=== PATIENT | female | born 1990 ===

== ENCOUNTER 2018-05-15 23:08 | Inpatient (IN) | payer BC ==
[~2018-05-15] VITALS: Ht 160 cm; Wt 50.8 kg
--- NOTE | 2018-05-15 23:16 | NUR ---
Dr. Archuleta at bedside for MSE.
[2018-05-15] MEDS ORDERED: IV NORMAL SALINE 1000 ML BAG IV ONE (23:30)
[2018-05-15] MEDS ORDERED: HYDROMORPHONE 1 MG/1 ML DISP.SYRIN IV ONE (23:30)
[2018-05-15] MEDS ORDERED: METOCLOPRAMIDE HCL 10 MG/2 ML VIAL IV ONE (23:30)
[2018-05-15] MEDS ORDERED: diphenhydrAMINE 50 MG/1 ML VIAL IV ONE (23:30)
[2018-05-15] MEDS ORDERED: METOCLOPRAMIDE HCL 10 MG/2 ML VIAL ONE (23:31)
[2018-05-15] MEDS ORDERED: HYDROMORPHONE 1 MG/1 ML DISP.SYRIN ONE (23:31)
[2018-05-15] MEDS ORDERED: DICYCLOMINE HCL 10 MG/5 ML UDC LIQ PO ONE (23:45)
[2018-05-15] MEDS ORDERED: DICYCLOMINE HCL 10 MG/5 ML UDC LIQ ONE (23:49)
[2018-05-16] MEDS ORDERED: HYDROMORPHONE 1 MG/1 ML DISP.SYRIN ONE ×2 (00:06→01:20)
[2018-05-16] MEDS ORDERED: SWABABLE VALVE TRANSFER SET EA MC ONE (00:08)
[2018-05-16] MEDS ORDERED: NORMAL SALINE FLUSH 10 ML DISP.SYRIN ONE (00:08)
[2018-05-16] MEDS ORDERED: IV NORMAL SALINE 250 ML IV ONE (00:09)
[2018-05-16] MEDS ORDERED: IOHEXOL 300MG/ML 100 ML INFUS..BTL ONE (00:09)
[2018-05-16] MEDS ORDERED: HYDROMORPHONE 1 MG/1 ML DISP.SYRIN IV ONE ×2 (00:15→01:30)
[2018-05-16 00:17] LABS: ALANINE AMINOTRANSFERASE 22 U/L (14-59); ALKALINE PHOSPHATASE 62 U/L (50-136); ASPARTATE AMINOTRANSFERASE 13 U/L (15-37); BILIRUBIN,DIRECT 0.1 mg/dL (0.0-0.2); BILIRUBIN,TOTAL 0.6 mg/dL (0.2-1.0); CARBON DIOXIDE 23 mmol/L (21-32); CHLORIDE 103 mmol/L (98-107); CREATININE 0.9 mg/dL (0.6-1.3); GLUCOSE 113 mg/dL (74-106); LIPASE 136 U/L (73-393); POTASSIUM 3.2 mmol/L (3.5-5.1); TOTAL PROTEIN, SERUM 7.9 g/dL (6.4-8.2); UREA NITROGEN, BLOOD 10 mg/dL (7-18)
[2018-05-16 00:24] LABS: BASOPHILS % (AUTO) 0.3 % (0.0-2.0); EOSINOPHILS # (AUTO) 0.1 K/uL (0.0-0.7); EOSINOPHILS % (AUTO) 0.9 % (0.0-7.0); HEMATOCRIT 42.7 % (31.2-41.9); HEMOGLOBIN 14.6 g/dL (10.9-14.3); LYMPHOCYTES # (AUTO) 4.1 K/uL (20.0-40.0); LYMPHOCYTES % (AUTO) 41.7 % (20.5-51.5); MEAN CORPUSCULAR HEMOGLOBIN 31.4 uug (24.7-32.8); MEAN CORPUSCULAR HGB CONC 34 g/dL (32.3-35.6); MEAN CORPUSCULAR VOLUME 91.8 fL (75.5-95.3); MONOCYTES # (AUTO) 0.8 K/uL (2.0-10.0); MONOCYTES % (AUTO) 8.1 % (0.0-11.0); NEUTROPHILS # (AUTO) 4.8 K/uL (1.8-8.9); PLATELET COUNT (AUTO) 245 K/uL (179-408); RED BLOOD CELL COUNT(AUTO) 4.65 MIL/uL (3.63-4.92); WHITE BLOOD COUNT (AUTO) 9.8 K/uL (3.8-11.8)
--- NOTE | 2018-05-16 00:26 | NUR ---
Pt provided urine sample, sent to lab.
--- NOTE | 2018-05-16 00:30 | NUR ---
Pt states nausea is gone and pain is feeling much better.
--- NOTE | 2018-05-16 00:34 | NUR ---
Pt out of ER for CT.
--- NOTE | 2018-05-16 00:55 | NUR ---
Pt back to ER from CT.
[2018-05-16 01:00] LABS: *BILIRUBIN,URIN NEGATIVE (NEGATIVE); *BLOOD, URINE Trace-intact (NEGATIVE); *CLARITY,URINE CLEAR (CLEAR); *COLOR,URINE YELLOW (YELLOW); *KETONES,URINE TRACE (NEGATIVE); *PROTEIN,URINE NEGATIVE (NEGATIVE); *UROBILINOGEN,URINE 0.2 E.U./dl (NORMAL); LEUKOCYTE ESTERASE ,URINE TRACE (NEGATIVE); NITRITE, URINE NEGATIVE (NEGATIVE); UGLUCOSE NEGATIVE (NEGATIVE)
[2018-05-16 01:05] LABS: BACTERIA,URINE FEW /HPF (NONE SEEN); RBC,URINE 0-3 /HPF (0-3); SQUAMOUS EPITHELIAL CELL,UR FEW /HPF (NONE SEEN); WBC,URINE 0-3 /HPF (0-3)
[2018-05-16] MEDS ORDERED: IV D5W-0.45% NS +20 KCL 1,000 ML IV ONE ×2 (01:17→01:32)
--- NOTE | 2018-05-16 01:17 | NUR ---
Pt states pain and nausea is back. Pain about 4/10. MD notified.
[2018-05-16] MEDS ORDERED: ONDANSETRON 4 MG/2 ML VIAL ONE (01:20)
[2018-05-16] MEDS ORDERED: ONDANSETRON IV *ER 4 MG/2 ML VIAL IV ONE (01:30)
[2018-05-16] MEDS ORDERED: PIPERACILLIN SODIUM/TAZOBACTAM 3.375 G in IV DEXTROSE 5% 50 ML IV ONE (02:15)
[2018-05-16] MEDS ORDERED: PIPERACILLIN/TAZOBACTAM/D5W 50 ML IV ONE (02:15)
--- NOTE | 2018-05-16 02:26 | NUR ---
Dr. Archuleta on panel call with Dr. Thomas.
--- NOTE | 2018-05-16 02:31 | NUR ---
Report given to Alicia PULIDO Medsurg.
--- NOTE | 2018-05-16 02:45 | NUR ---
Pt received in Med Surg unit RM [id number] via gurney under the care of Dr. MANNY MD. Mother at bedside. Patient belongings list completed. Pt AxO x4. Pt complains of abdominal pain and nausea at this time. No emesis present. Pain management noted. Assisted pt to bathroom. Pertinent assessments and unit orientation done. IV on R AC 20g intact and patent. Contacted MD for admitting orders. Safety precautions and comfort measures implemented. Bed on low locked position, call light within reach. Will continue to monitor closely and carry out all orders.
[2018-05-16] MEDS ORDERED: ONDANSETRON 4 MG/2 ML VIAL IV PRN (03:30)
[2018-05-16] MEDS ORDERED: ZOLPIDEM 5 MG TABLET PO PRN (03:30)
[2018-05-16] MEDS ORDERED: MORPHINE SULFATE 4 MG/1 ML DISP.SYRIN IV PRN (03:30)
[2018-05-16] MEDS ORDERED: Z GUARD REMEDY PASTE 57 GM TUBE TOP PRN (03:30)
[2018-05-16] MEDS ORDERED: IV NS 1000 ML 1,000 ML IV PRN (03:30)
[2018-05-16] MEDS ORDERED: HYDROCODONE/APAP 5-325MG TABLET PO PRN (03:30)
[2018-05-16] MEDS ORDERED: MAGNESIUM HYDROXIDE 30 ML LIQUID UDC PO PRN (03:30)
[2018-05-16] MEDS ORDERED: PIPERACILLIN/TAZOBACTAM/D5W 3.375 G in PREMIXED 1 EACH IV SCH (06:00)
[2018-05-16 06:16] VITALS: BP 108/65
--- NOTE | 2018-05-16 06:30 | NUR ---
Pt had complaints of pain througout the night. Slept intermittently. Pain and antiemetic med given x1 with no effect. Pt emesis output 150, color brown, biluous with food particles. Contacted Dr. BRYANT at [phone] [id number] [phone]. Awaiting call back. Pt AxO x4. Pt IV intact with no s/s of redness or swelling. Pt maintained NPO during the night. Comfort measures maintained at all times. Will endorse plan of care with day shift nurse.
--- NOTE | 2018-05-16 06:49 | NUR ---
Dr Thomas paged at this time for additional meds for pt's nausea and pain through [facility]'s paging system; awaiting call back.
[2018-05-16] MEDS ORDERED: MORPHINE SULFATE 2 MG/1 ML DISP.SYRIN IV PRN (07:15)
[2018-05-16] MEDS: PIPERACILLIN/TAZOBACTAM/D5W 3.375 G in PREMIXED 1 EACH IV SCH ×3 (09:18→20:55)
--- NOTE | 2018-05-16 10:33 | NUR ---
PT SEEN BY DR CARRERO
[2018-05-16 11:17] VITALS: BP 87/47
[2018-05-16] MEDS ORDERED: METOCLOPRAMIDE HCL 10 MG/2 ML VIAL IV PRN (13:30)
[2018-05-16] MEDS: POTASSIUM CHLORIDE 20 MEQ in IV D5/ 0.9% NACL 1,000 ML IV PRN (14:08)
[2018-05-16 16:32] VITALS: BP 98/53
[2018-05-16] MEDS: ACETAMINOPHEN 325 MG TABLET PO PRN (18:17)
--- NOTE | 2018-05-16 19:41 | NUR ---
PATIENT IS AWAKE IN BED, AAOX4. DENIES PAIN OR ANY DISTRESS ON ASSESSMENT. SAFETY MEASURES IN PLACE, WILL CONTINUE TO MONITOR PATIENT
[2018-05-16] MEDS: PIPERACILLIN/TAZOBACTAM/D5W 50 ML IV SCH ×2 (20:21→20:55)
[2018-05-16 20:29] VITALS: BP 97/49
[2018-05-16 22:38] VITALS: BP 98/56
[2018-05-17] MEDS: PIPERACILLIN/TAZOBACTAM/D5W 50 ML IV SCH ×3 (02:04→13:28)
[2018-05-17 05:09] VITALS: BP 95/59
[2018-05-17 06:08] LABS: BASOPHILS % (AUTO) 0.3 % (0.0-2.0); EOSINOPHILS # (AUTO) 0.1 K/uL (0.0-0.7); EOSINOPHILS % (AUTO) 0.7 % (0.0-7.0); HEMATOCRIT 36.7 % (31.2-41.9); HEMOGLOBIN 12.8 g/dL (10.9-14.3); LYMPHOCYTES # (AUTO) 2.1 K/uL (20.0-40.0); LYMPHOCYTES % (AUTO) 22.5 % (20.5-51.5); MEAN CORPUSCULAR HEMOGLOBIN 32.3 uug (24.7-32.8); MEAN CORPUSCULAR HGB CONC 35 g/dL (32.3-35.6); MEAN CORPUSCULAR VOLUME 92.9 fL (75.5-95.3); MONOCYTES # (AUTO) 0.8 K/uL (2.0-10.0); MONOCYTES % (AUTO) 8.4 % (0.0-11.0); NEUTROPHILS # (AUTO) 6.4 K/uL (1.8-8.9); NEUTROPHILS % (AUTO) 68.1 % (38.5-71.5); PLATELET COUNT (AUTO) 174 K/uL (179-408); RED BLOOD CELL COUNT(AUTO) 3.95 MIL/uL (3.63-4.92); WHITE BLOOD COUNT (AUTO) 9.3 K/uL (3.8-11.8)
--- NOTE | 2018-05-17 06:11 | NUR ---
PATIENT SLEPT WELL ON THIS SHIFT, NO C/O PAIN OR ANY DISTRESS ON THIS SHIFT. V/S WITHIN PATIENT'S BASELINE, NO FEVER. NO SIGNIFICANT CHANGES IN STATUS
[2018-05-17 07:02] LABS: BILIRUBIN,TOTAL 1.5 mg/dL (0.2-1.0); CREATININE 0.8 mg/dL (0.6-1.3); PHOSPHOROUS 3.9 mg/dL (2.5-4.9); POTASSIUM 4.1 mmol/L (3.5-5.1); TOTAL PROTEIN, SERUM 6.7 g/dL (6.4-8.2)
[2018-05-17] MEDS ORDERED: PANTOPRAZOLE SODIUM 40 MG VIAL IV SCH ×2 (09:00)
--- NOTE | 2018-05-17 10:28 | NUR ---
pt seen by dr rasmussen
[2018-05-17 11:31] VITALS: BP 95/47
[2018-05-17] MEDS: POTASSIUM CHLORIDE 20 MEQ in IV D5/ 0.9% NACL 1,000 ML IV PRN (13:31)
[2018-05-17 15:13] VITALS: BP 109/58
[2018-05-17] MEDS ORDERED: METR500T PO (16:09)
[2018-05-17] MEDS ORDERED: CIPR-262 PO (16:09)
[2018-05-17] MEDS: ACETAMINOPHEN 325 MG TABLET PO PRN (16:28)
--- NOTE | 2018-05-17 16:30 | NUR ---
d/c orders received noted and carried out,d/c heplock per md orders,d/c instruction and education given to the pt,pt verbalized understanding all the instruction,pt left the facility via private car in stable condition
== END 2018-05-17 16:30 | disposition home or self-care (01) | DRG 395 ==
LOC: ER 23:10 → MED 05-16 02:20
PROVIDERS: ADMIT Internal Medicine; ATTEND Internal Medicine
DX: K35.80 Unspecified acute appendicitis (principal); E87.6 Hypokalemia; E88.09 Other disorders of plasma-protein metabolism, not elsewhere classified; E80.6 Other disorders of bilirubin metabolism
CPT/HCPCS: 36415; 83605; 83690; 83735; 84100; 85025; 85730; A4663; C9113; G0378; J1170; J2270; J2405; J2543; J2765; J3480; J3490; J7030; J7042; J7050; Q9967